=== PATIENT | male | born 1980 | race Caucasian/White ===

== ENCOUNTER 2018-09-28 19:06 | Emergency (ER) | payer OTHER, MEDICAID ==
[~2018-09-28] VITALS: Ht 182.9 cm; Wt 113.4 kg
[~2018-09-28 19:06] MED LIST: FLEXERIL PO; NOHOMEMEDICATIONS; NORCO 5-325 TA1 EACH PO; ONDANSETRON HCL4 M2 PO; PENICILLIN VK500 M1 PO; PREDNISONE 10 M10 M1 PO; PRILOSEC40 MG PO; ULTRAM 50MG TAB50 MG PO; XANAX 0.5 MG0.5 MG PO; XANAX XR1 MG PO
[2018-09-28] MEDS ORDERED: KEFLEX500 M1 PO (20:20)
[2018-09-28 20:31] VITALS: BP 134/71
== END 2018-09-28 20:32 | disposition home or self-care (01) ==
LOC: M.ERS 19:06
DX: L02.212 Cutaneous abscess of back [any part, except buttock and flank] (principal); F41.9 Anxiety disorder, unspecified; Z88.2 Allergy status to sulfonamides; Z88.8 Allergy status to other drugs, medicaments and biological substances